=== PATIENT | female | born 1955 | race Caucasian/White ===

== ENCOUNTER → 2016-10-27 | Outpatient (CLI) | payer MEDICAID ==
[~2016-10-27] MED LIST: ALBU18HF2 ORAL INH; AMLO5TAB2 PO; BENA20TA3 PO; CALC-52 PO; CYAN250010 PO; CYCL-375 PO; ERYT-113 PO; FERR-67 PO; FLUT1DIS3 ORAL INH; FOLI1TAB15 PO; FURO40TA5 PO; IBUP-1547 PO; OMEP40CA52 PO; POTA10CA37 PO; PREG100C PO; ROSU10TA PO; SPIR25TA PO
--- NOTE | 2016-10-27 11:26 | DI ---
EXAM: US VENOUS DUPLEX, LOWER EXT RT LOCATION OF DICTATION: [place] HISTORY: ITS.REASON: M79.661 PAIN IN RIGHT CALF COMPARISON: No prior studies available for comparison. TECHNIQUE: Multiple real-time grayscale sonographic images were obtained of the right lower extremities with color flow and spectral analysis. FINDINGS: The right common femoral, femoral, deep femoral, popliteal, posterior tibial, and peroneal veins are widely patent without filling defects. These vessels demonstrate normal response to augmentation and compression. There are no abnormal fluid collections within the surrounding soft tissues. IMPRESSION: No evidence for right lower extremity deep venous thrombosis. .
== END ==
LOC: IMA 10:51
PROVIDERS: ATTEND Nurse Practitioner Family
DX: M79.661 Pain in right lower leg (principal)